=== PATIENT | female | born 1985 | race Two or more races ===

== ENCOUNTER 2024-12-15 14:00 | Emergency (ER) | payer OTHER ==
[~2024-12-15] VITALS: Ht 160 cm; Wt 81.6 kg
[~2024-12-15 14:00] MED LIST: ACIDOPHILUS CA1 EACH PO; BENTYL10 MG/ML; KETO10TA2 PO; LEVSIN/SL0.125 MG PO; METHOTREXATE2.5 MG; MILLIPRED5 MG; NO TOMA MEDICAMENTOS; NORFLEX100MG PO; PRENATAL; ZANTAC150 MG PO; ZOFRAN8 MG PO
[2024-12-15] MEDS ORDERED: HORIZANT300 MG (14:07)
[2024-12-15] MEDS ORDERED: ORPHENADRINE CITRATE 30 MG/ML AMPUL IM STA (16:35)
== END 2024-12-15 17:45 | disposition home or self-care (01) ==
LOC: ER 14:00
DX: T14.8XXA Other injury of unspecified body region, initial encounter (principal); V49.9XXA Car occupant (driver) (passenger) injured in unspecified traffic accident, initial encounter; Y93.89 Activity, other specified; Y92.413 State road as the place of occurrence of the external cause; Y99.9 Unspecified external cause status; M54.89 Other dorsalgia; M54.2 Cervicalgia; Z91.013 Allergy to seafood